=== PATIENT | male | born 1960 | race Hispanic/Latino ===

== ENCOUNTER 2017-11-09 12:23 | Observation (INO) | payer OTHER ==
[2017-11-06 12:58] VITALS: BP 135/86
[2017-11-06 12:59] LABS: BASOPHILS % (AUTO) 0.3 % (0.0-5.0); HEMATOCRIT 43.9 % (42-54); LYMPHOCYTES % (AUTO) 11.3 % (21.0-51.0); MEAN CORPUSCULAR HEMOGLOBIN 31.5 pg (27.0-33.0); MEAN CORPUSCULAR HGB CONC 34.4 g/dL (32.0-36.0); MEAN CORPUSCULAR VOLUME 91.6 fL (79-99); MONOCYTES % (AUTO) 1.6 % (3.0-13.0); NEUTROPHILS % (AUTO) 86.8 % (40.0-77.0); PLATELET COUNT (AUTO) 244 K/uL (130-400); RED BLOOD CELL COUNT(AUTO) 4.79 MIL/uL (4.50-6.20); WHITE BLOOD COUNT (AUTO) 11.5 K/uL (4.8-10.8)
[2017-11-06 13:02] LABS: APPEARANCE,URINE Clear (CLEAR); BILIRUBIN,URINE Negative (NEGATIVE); COLOR,URINE Yellow (YELLOW); GLUCOSE, URINE (UA) Negative (NEGATIVE); KETONES,URINE Negative (NEGATIVE); LEUKOCYTE ESTERASE ,URINE Negative (NEGATIVE); NITRATE,URINE Negative (NEGATIVE); OCCULT BLOOD,URINE Negative (NEGATIVE); PH,URINE 5.5 (5.0-8.0); PROTEIN,URINE Negative (NEGATIVE); UROBILINOGEN,URINE 0.2 mg/dL (0.2-1.0)
[2017-11-06 13:18] LABS: INR 1.01 (0.85-1.15); PARTIAL THROMBOPLASTIN TIME 29.3 SEC (26.3-35.5); POTASSIUM 3.8 mmol/L (3.5-5.1); PROTHROMBIN TIME 10.6 SEC (9.6-11.6)
[2017-11-09] VITALS (15 sets, daily range): BP systolic 118–151; BP diastolic 60–97
[~2017-11-09] VITALS: Ht 179.1 cm; Wt 103.8 kg
[~2017-11-09 12:23] MED LIST: AMLO5TAB2 PO; TRAM50TA4 PO; TYL4 PO
[2017-11-09] MEDS ORDERED: LACTATED RINGERS 1000ML 1,000 ML IV ONE (12:55)
[2017-11-09] MEDS: CEFAZOLIN SODIUM 1 GM VIAL IVP SCH ×2 (13:00→19:30)
[2017-11-09] MEDS ORDERED: NEOSTIGMINE 5MG/5ML SYR IV ONE ×2 (15:44→18:17)
[2017-11-09] MEDS ORDERED: DEXAMETHASONE SOD PHOSPHATE 10MG/ML 1ML VIAL ONE ×3 (15:44→18:17)
[2017-11-09] MEDS ORDERED: LIDOCAINE PF 2% 5ML ABBOJECT ONE ×4 (15:44→18:17)
[2017-11-09] MEDS ORDERED: ONDANSETRON HCL 4 MG/2 ML VIAL ONE ×2 (15:44→18:17)
[2017-11-09] MEDS ORDERED: MIDAZOLAM HCL 1 MG/ML 2ML VIAL ONE ×2 (15:44→18:18)
[2017-11-09] MEDS ORDERED: GLYCOPYRROLATE 0.2 MG/ML 5 ML VIAL ONE (15:44)
[2017-11-09] MEDS ORDERED: PROPOFOL 10 MG/ML 20ML VIAL IV ONE ×2 (15:45→18:18)
[2017-11-09] MEDS ORDERED: FENTANYL CITRATE PF 50 MCG/1 ML 2ML VIAL ONE ×2 (15:45→18:18)
[2017-11-09] MEDS ORDERED: ROCURONIUM BROMIDE 10MG/1ML 5ML VL ONE ×2 (15:50)
[2017-11-09] MEDS ORDERED: SUCCINYLCHOLINE CHLORIDE 20 MG/ML 10 ML VIAL ONE (15:50)
[2017-11-09] MEDS ORDERED: ROPIVACAINE HCL/PF 0.5% 100ML BOTTLE IV ONE (16:00)
[2017-11-09] MEDS ORDERED: KETOROLAC TROMETHAMINE 60 MG/2 ML VIAL IV ONE (16:00)
[2017-11-09] MEDS ORDERED: METOCLOPRAMIDE 10 MG/2 ML VIAL ONE (16:05)
[2017-11-09] MEDS ORDERED: ACETAMINOPHEN EXTRA STRENGTH 500 MG TABLET ONE (16:06)
[2017-11-09] MEDS ORDERED: CELECOXIB 200 MG CAP ONE (16:06)
[2017-11-09] MEDS ORDERED: OXYCODONE HCL 10 MG TAB.SR.12H PO ONE (16:07)
[2017-11-09] MEDS ORDERED: KETOROLAC TROMETHAMINE 15MG/ML ONE (16:13)
[2017-11-09] MEDS: Q-PUMP 1 EACH MISC SCH (16:15)
[2017-11-09] MEDS ORDERED: TRANEXAMIC ACID 1000MG/10ML IV ONE (18:07)
[2017-11-09] MEDS ORDERED: CEFAZOLIN SODIUM 1 GM VIAL ONE (18:07)
[2017-11-09] MEDS ORDERED: SUCCINYLCHOLINE 200MG/10ML SYR ONE (18:17)
[2017-11-09] MEDS ORDERED: LIDOCAINE HCL-MPF 1% 2ML VIAL IVP PRN (22:00)
[2017-11-09] MEDS ORDERED: POTASSIUM CHLORIDE 20MEQ/100ML 100 ML IV PRN (22:00)
[2017-11-09] MEDS: ACETAMINOPHEN EXTRA STRENGTH 500 MG TABLET PO SCH (22:00)
[2017-11-09] MEDS ORDERED: KETOROLAC TROMETHAMINE 15MG/ML IV PRN (22:00)
[2017-11-09] MEDS ORDERED: DiphenhydrAMINE HCL 50 MG/ML VIAL IVP PRN (22:00)
[2017-11-09] MEDS ORDERED: TRAMADOL HCL 50 MG TABLET PO PRN (22:00)
[2017-11-09] MEDS ORDERED: OXYCODONE HCL 5 MG TAB PO PRN (22:00)
[2017-11-09] MEDS ORDERED: FE FUMARATE/FA/MV, MIN COMB#15 1 TAB PO PRN (22:00)
[2017-11-09] MEDS ORDERED: ONDANSETRON HCL 4 MG/2 ML VIAL IVP PRN (22:00)
[2017-11-09] MEDS ORDERED: POTASSIUM CHLORIDE 10% ELIXIR 20 MEQ/15 ML UDCUP PO PRN (22:00)
[2017-11-09] MEDS ORDERED: MEPERIDINE-PF 25 MG/ML SYG ONE (22:21)
[2017-11-09] MEDS: SODIUM CHLORIDE 0.9% 1000ML 1,000 ML IV SCH (23:44)
[2017-11-10] VITALS (10 sets, daily range): BP systolic 106–140; BP diastolic 56–92
[2017-11-10] MEDS ORDERED: CEFAZOLIN SODIUM 1 GM VIAL ONE ×2 (02:24→10:55)
[2017-11-10] MEDS: OXYCODONE HCL 5 MG TAB PO PRN ×5 (02:30→20:20)
[2017-11-10] MEDS: CEFAZOLIN 2GM / 50 ML 50 ML IV SCH ×2 (02:31→11:00)
[2017-11-10 05:55] LABS: HEMATOCRIT 37.3 % (42-54); MEAN CORPUSCULAR HEMOGLOBIN 32.2 pg (27.0-33.0); MEAN CORPUSCULAR HGB CONC 34.7 g/dL (32.0-36.0); MEAN CORPUSCULAR VOLUME 92.8 fL (79-99); PLATELET COUNT (AUTO) 189 K/uL (130-400); RED BLOOD CELL COUNT(AUTO) 4.02 MIL/uL (4.50-6.20); RED CELL DISTRIBUTION WIDTH 13.8 % (11.0-15.5); WHITE BLOOD COUNT (AUTO) 18.7 K/uL (4.8-10.8)
[2017-11-10 06:05] LABS: CREATININE 0.9 mg/dL (0.5-1.5); POTASSIUM 3.3 mmol/L (3.5-5.1)
[2017-11-10] MEDS: ACETAMINOPHEN EXTRA STRENGTH 500 MG TABLET PO SCH ×2 (06:06→14:58)
[2017-11-10] MEDS: CALCIUM CARBONATE 500 MG TABLET PO PRN ×2 (06:20→09:01)
[2017-11-10] MEDS: POTASSIUM CHLORIDE 20 MEQ ERTAB PO PRN ×3 (06:21→11:01)
[2017-11-10] MEDS ORDERED: FENTANYL CITRATE PF 50 MCG/1 ML 5ML AMP IV ONE (07:46)
[2017-11-10] MEDS: SODIUM CHLORIDE 0.9% 1000ML 1,000 ML IV SCH ×2 (07:49→17:49)
[2017-11-10] MEDS ORDERED: ROCURONIUM BROMIDE 10MG/1ML 5ML VL ONE (08:16)
[2017-11-10] MEDS ORDERED: AMLODIPINE BESYLATE 5 MG TAB PO SCH (09:00)
[2017-11-10] MEDS ORDERED: TAMSULOSIN HCL 0.4 MG CAP.ER.24H PO SCH (09:00)
[2017-11-10] MEDS ORDERED: POLYETHYLENE GLYCOL 3350 17 GM POWD.PACK PO SCH (09:00)
[2017-11-10] MEDS: ASPIRIN 325 MG TABLET PO SCH ×2 (09:01→20:20)
[2017-11-10] MEDS: PREGABALIN 25 MG CAP PO SCH ×2 (09:01→20:20)
[2017-11-10] MEDS: FAMOTIDINE 20MG TAB 20 MG TAB PO SCH ×2 (09:01→20:20)
[2017-11-10] MEDS: CELECOXIB 200 MG CAP PO SCH ×2 (09:02→20:20)
[2017-11-10] MEDS: Q-PUMP 1 EACH MISC SCH (16:15)
[2017-11-10] MEDS ORDERED: HYDR-309 PO (19:13)
[2017-11-12] MEDS ORDERED: BISACODYL 10 MG SUPP.RECT RC PRN (22:00)
== END 2017-11-10 21:00 | disposition home or self-care (01) ==
LOC: DAH 12:23 → DAHIP 12:24 → EDSTATUS 14:30 → 4AH 11-10 00:16
PROVIDERS: ADMIT Orthopaedic Surgery; ATTEND Orthopaedic Surgery
DX: M75.102 Unspecified rotator cuff tear or rupture of left shoulder, not specified as traumatic (principal); Z79.01 Long term (current) use of anticoagulants
CPT/HCPCS: 23470; 36415 ×2; 73020; 80048 ×2; 81003; 85025; 85027; 85610; 85730; 88304; 88311; 96374 ×2; 97116 ×2; 97161; 97530 ×2; A4218 ×3; A4565 ×2; A4649 ×2; A4930 ×2; A6206; C1776; G0168; G0378 ×33; G8978; G8979; G8980; G8981; G8982; G8983; J0330 ×2; J0690 ×5; J1100 ×3; J1885 ×3; J2001 ×4; J2175; J2250; J2405 ×2; J2704 ×2; J2710 ×2; J2765; J2795; J3010; J3490 ×5; J7030; J7120

== ENCOUNTER 2025-03-23 10:09 | Observation (INO) | payer OTHER ==
[~2025-03-23] VITALS: Ht 182.9 cm; Wt 94.3 kg
[~2025-03-23 10:09] MED LIST changes: +AMLO-257 PO; -AMLO5TAB2 PO; +HYDR-4457 PO; -TRAM50TA4 PO; -TYL4 PO
[2025-03-23 10:26] LABS: APPEARANCE,URINE CLOUDY (CLEAR); GLUCOSE, URINE (UA) NEGATIVE (NEGATIVE); LEUKOCYTE ESTERASE ,URINE NEGATIVE Leu/uL (NEGATIVE); NITRATE,URINE NEGATIVE (NEGATIVE); OCCULT BLOOD,URINE LARGE (NEGATIVE)
--- NOTE | 2025-03-23 10:26 | ERN ---
ED Note History of Present Illness Stated Complaint: LEFT FLANK PAIN Chief Complaint: Flank Pain Time Seen by MD: 10:10 Time Seen by Midlevel: 10:14 Dictation: 64-year-old male with a history of hypertension and cholesterol coming in with complaints of left flank pain onset three days ago. Patient states he went to go see his PCP where they did blood in collected a urine sample and was told he had a urine infection any kidney infection. Patient was placed on levofloxacin. Patient was also given tamsulosin and [place]. Patient states he has has a bruise radiating pain. Denies having any fever, nausea or vomiting. States he started taking the antibiotic yesterday. Allergies: Coded Allergies: No Known Drug Allergies (Unverified Allergy, Unknown, 11/06/17) Home Meds Active Scripts Hydrocodone/Acetaminophen ([place] 5-325 Tablet) 1 Each Tablet, 1-2 EACH PO Q6H PRN for pain, #90 TAB Prov:SHOSHANA CALVIN MD 11/10/17 Reported Medications Amlodipine Besylate (Amlodipine Besylate) 5 Mg Tablet, 5 MG PO DAILY, TAB 11/06/17 Past Medical History Past Medical History: Hypertension Surgical History: Other Surgical History Other: LT KNEE, BACK SX, HERNIAS X4, LT SHOULER, RT SHOULDER Review of System Dictation Constitutional: Negative for fever,chills, and weight loss Eyes: Negative for injury, pain,redness, and discharge ENT: Negative for injury,pain or swelling Cardiovascular: Negative for chest pain, palpitations, and edema Respiratory: Negative for shortness of breath, cough, and wheezing, Abdomen/GI: Negative for abdominal pain, nausea, vomiting, diarrhea, and constipation left flank pain Back: Negative for injury and pain : Negative for injury, bleeding and discharge MS/Extremity: Negative for injury and deformity Skin: Negative for rash, and discoloration Neuro: Negative for headache, weakness, numbness, tingling, and seizure Psych: Negative for suicide ideation, homicidal ideation, and hallucinations Review of Systems: was completed Initial Vital Sign VS Vital Signs Date Time Temp Pulse Resp B/P (MAP) Pulse Ox O2 Delivery O2 Flow Rate FiO2 03/23/25 10:12 98.1 53 16 141/73 99 Room Air 0 03/23/25 11:00 21 Physical Exam Dictation General: awake, alert, NAD Head/Face: Normocephalic, atraumatic Eyes: PERRL, EOMI, vision at baseline ENT: oral cavity clear, TMs clear, no signs of infection Neck: Trachea midline, supple, no nuchal rigidity Cardiovascular: RRR, normal S1/S2, No MRGs, no JVD Respiratory: CTAB, no respiratory distress, No rales or wheezes Abdomen: Soft, non-tender, non-distended, normal bowel sounds, no guarding or rebound. Left CVA tenderness Skin: Warm, dry, normal turgor, no rash MS/Extremity: Pulses equal, no cyanosis, neurovascular intact, FROM Neuro: COAx4, GCS 15, strength 5/5, CN 2-12 intact, normal cerebellar exam, normal gait, Psych: Normal behavior, mood, and affect normal Results (Laboratory/Radiology) Laboratory/Radiology Laboratory Tests Test 03/23/25 10:15 03/23/25 10:25 Urine Color LIGHT-ORANGE (YELLOW) Urine Appearance CLOUDY (CLEAR) H Urine pH 5.5 (5.0-8.0) Urine Specific [place] 1.031 (1.001-1.031) Urine Protein 30 mg/dL (NEGATIVE) H Urine Glucose (UA) NEGATIVE mg/dL (NEGATIVE) Urine Ketones NEGATIVE mg/dL (NEGATIVE) Urine Occult Blood LARGE (NEGATIVE) H Urine Nitrate NEGATIVE (NEGATIVE) Urine Bilirubin NEGATIVE mg/dL (NEGATIVE) Urine Urobilinogen 0.2 mg/dL (0.2-1.0) Urine Leukocyte Esterase NEGATIVE J[place]aran/uL Urine RBC TNTC /HPF (0-1) H Urine WBC 11-25 /HPF (0-1) H Urine Bacteria None /HPF (None Seen) Urine Yeast RARE /HPF (None Seen) White Blood Count 12.3 K/uL (4.8-10.8) H Red Blood Count 4.54 MIL/uL (4.50-6.20) Hemoglobin 14.8 g/dL (14.0-18.0) Hematocrit 45.3 % (42-54) Mean Corpuscular Volume 99.8 fL (79-99) H Mean Corpuscular Hemoglobin 32.6 pg (27.0-33.0) Mean Corpuscular Hemoglobin Concent 32.7 g/dL (32.0-36.0) Red Cell Distribution Width 13.5 % (11.0-15.5) Platelet Count 234 K/uL (130-400) Mean Platelet Volume 10.9 fL (7.5-10.5) H Immature Granulocyte % (Auto) 0.3 % (0-1) Neutrophils (%) (Auto) 66.5 % (40.0-77.0) Lymphocytes (%) (Auto) 24.1 % (21.0-51.0) Monocytes (%) (Auto) 7.1 % (3.0-13.0) Eosinophils (%) (Auto) 1.5 % (0.0-8.0) Basophils (%) (Auto) 0.5 % (0.0-5.0) Neutrophils # (Auto) 8.2 K/uL (1.8-7.7) H Lymphocytes # (Auto) 3.0 K/uL (1.0-4.8) Monocytes # (Auto) 0.9 K/uL (0.1-1.0) Eosinophils # (Auto) 0.19 K/uL (0.00-0.70) Basophils # (Auto) 0.06 K/uL (0.00-0.20) Absolute Immature Granulocyte (auto 0.04 K/uL (0-1) Nucleated Red Blood Cells 0.0 % (0.0-0.19) Sodium Level 139 mmol/L (136-145) Potassium Level 4.3 mmol/L (3.5-5.1) Chloride Level 103 mmol/L (101-111) Carbon Dioxide Level 26 mmol/L (21-32) Blood Urea Nitrogen 37 mg/dL (7-18) H Creatinine 1.7 mg/dL (0.5-1.3) H Glomerular Filtration Rate Calc 45 mL/min (>90) Random Glucose 100 mg/dL (70-105) Total Calcium 8.6 mg/dL (8.5-10.1) Labs Reviewed?: Yes CT Scan Comment: [place] [id number] [id number] IMAGING REPORT Signed PATIENT: DONNELL ADAME MR#: [id number] : 1960 SEX: M AGE: 64 LOCATION: [facility] ORDER 1014 STATUS: REG ER REPORT#: [id number] SERVICE 1013 REASON: l flank pain ORDERING PHYSICIAN: ANANT DELGADO CNP PROCEDURE: ABD PEL WO - CT ABDOMEN/PELVIS W/O CONTRAST EXAM: CT Abdomen and Pelvis Without IV Contrast CLINICAL HISTORY: Left flank pain TECHNIQUE: Axial computed tomography images of the abdomen and pelvis without intravenous contrast. CONTRAST: No IV contrast. COMPARISON: None provided. FINDINGS: LUNG BASES: Chronic dependent interstitial changes in the bilateral posterobasal segments. No pleural effusion. LIVER: Hepatomegaly measuring 17 cm with diffuse hepatic steatosis. GALLBLADDER AND BILE DUCTS: Gallbladder normal. No radiopaque gallstones. No biliary ductal dilatation. PANCREAS: Normal appearance. SPLEEN: Unremarkable. ADRENAL GLANDS: Unremarkable. KIDNEYS, URETERS, AND BLADDER: Right kidney: Two 2-mm calculi in the upper pole. Left kidney: At least three calculi measuring up to 4 mm. Left proximal ureter: 7-mm calculus (CT density 900 HU) located approximately 6 cm distal to the pelviureteric junction. Right vesicoureteric junction calculus: 5-mm calculus (density 500 HU). No hydronephrosis or hydroureter. Bladder unremarkable. Bilateral perinephric fat stranding noted. STOMACH AND BOWEL: No bowel obstruction, enteritis, or colitis. APPENDIX: Normal; 0.5 cm in diameter. PERITONEUM: No free fluid. No free air. LYMPH NODES: No lymphadenopathy. REPRODUCTIVE: Prostatomegaly measuring approximately 39 cc. VASCULATURE: Aorta and major branches demonstrate atherosclerotic calcification. No aneurysm. BONES: Moderate degenerative thoracolumbar spondylosis with multilevel disc space narrowing and facet arthrosis. Mild lumbar dextroscoliosis with Guerrero angle of 10???. No acute osseous lesion. OTHER: Fat-containing bilateral indirect inguinal hernias. Small umbilical hernia with 1-cm fascial defect containing fat. Dose length product: 996 mGy???cm. IMPRESSION: * Left proximal ureteric calculus measuring 7 mm (900 HU) located 6 cm distal to the pelviureteric junction; right vesicoureteric junction 5-mm calculus. No hydronephrosis. * Bilateral nephrolithiasis: Two right upper-pole 2-mm calculi and at least three left renal calculi up to 4 mm. * Hepatomegaly with diffuse hepatic steatosis. * Bilateral perinephric fat stranding, nonspecific, without obstructive uropathy. * Moderate degenerative thoracolumbar spondylosis with mild lumbar dextroscoliosis (Guerrero 10???). * Fat-containing bilateral indirect inguinal hernias and a small umbilical hernia. /[place] DICTATED BY: MAURICE REVELES MD DATE: 03/23/251331 ELECTRONICALLY SIGNED BY: MAURICE REVELES MD DATE: 03/23/251331 ED Course ED Course Orders Procedure Category Date Status Time Cbc With Differential LAB 03/23/25 Complete 10: Basic Metabolic Panel LAB 03/23/25 Complete 10: Urinalysis Profile LAB 03/23/25 Complete 10: Ct Abdomen/Pelvis W/O CT 03/23/25 Resulted Contrast 10:13 0.9%Nacl 1000ml (Ns PHA 03/23/25 In Process 1000ml) 10:30 Ketorolac PHA 03/23/25 Complete Tromethamine 15mg/Ml 10:30 Culture Urine RAMAKRISHNA 03/23/25 In Process 10:34 Ceftriaxone 1g Vial PHA 03/23/25 Complete (Rocephine 1g Inj) 12:39 Current Medications Medications (Trade) Dose Ordered Sig/Sagrario Route PRN Reason Start Time Stop Time Status Last Admin Dose Admin Ceftriaxone Sodium (ROCEphine 1G INJ) 1 gm ONCE STAT IVPB 03/23/25 12:39 03/23/25 12:41 DC Ketorolac Tromethamine (toRADol) 15 mg ONCE ONCE IV 03/23/25 10:30 03/23/25 10:31 DC 03/23/25 11:12 Sodium Chloride 1,000 ml @ 1,000 mls/hr Q1H IV 03/23/25 10:30 04/22/25 10:29 03/23/25 11:12 Vital Signs Date Time Temp Pulse Resp B/P (MAP) Pulse Ox O2 Delivery O2 Flow Rate FiO2 03/23/25 11:00 97.2 54 18 146/83 100 Room Air* 0 21 03/23/25 10:12 98.1 53 16 141/73 99 Room Air 0 Medical Decision Making MDM MDM: 64-year-old male with a history of hypertension and cholesterol coming in with complaints of left flank pain onset three days ago. Patient states he went to go see his PCP where they did blood in collected a urine sample and was told he had a urine infection any kidney infection. Patient was placed on levofloxacin. Patient was also given tamsulosin and [place]. Patient states he h as has a bruise radiating pain. Denies having any fever, nausea or vomiting. States he started taking the antibiotic yesterday. CBC shows leukocytosis of 12 , no anemia, no thrombocytopenia. Chemistry shows no electrolyte abnormality. KILLIAN with a creatinine of 1.7. UA shows evidence of hematuria and some WBCs in urine. He has can of the abdomen and pelvis shows left kidney three calculi measuring up to 4 mm, left proximal ureter measuring sudden mm. No hydronephrosis or hydroureter. Bilateral perinephric fat stranding. With the patient's labs and physical assessment with a positive CVA tenderness patient will be admitted for kidney stones, KILLIAN, and pyelonephritis. Differential diagnosis: Pyelonephritis, urinary tract infection, kidney stones Rationale: Tests considered and ordered secondary to shared decision making include: labs, ECG and radiology Previous outside records reviewed: Old ER visits. Risk of complication and/or morbidity or mortality of patient management: None Medications-Per medication reconciliation Need for hospitalization: Patient does meet criteria for hospitalization. Need for emergency major/minor surgery: No There are no social concerns with this patient. Prescription drug management Prescriptions will include symptomatic care Patient's prior external medical records from other ER visits were reviewed by me as indicated. Prior testing and results from previous visits were reviewed. Prior tests were taken into account with medical decision making and resource utilization, independent historian/historians were used to obtain complete medical history. I independently interpreted the test that were performed, results were reviewed by me and considered findings on radiology if ordered. Medical management and examination interpretation discussions were had by me with other qualified healthcare professionals as indicated for the patient's care. DX & DISP Disposition: Inpatient Decision to Admit Date: Mar 23, 2025 Decision to Admit Time: 12:55 Departure Impression: Primary Impression: Nephrolithiasis Additional Impressions: Pyelonephritis, KILLIAN (acute kidney injury), Calculus of proximal left ureter Condition: Stable Referrals: SHOSHANA CALVIN MD (PCP) I have reviewed the case, and I agree with, Diagnosis and Plan ANANT DELGADO CNP Mar 23, 2025 10:26
[2025-03-23 10:28] LABS: IMMATURE GRANULOCYTE ABSOLUTE 0.04 K/uL (0-1); NUCLEATED RED BLOOD CELLS 0.0 % (0.0-0.19); PLATELET COUNT (AUTO) 234 K/uL (130-400); RED BLOOD CELL COUNT(AUTO) 4.54 MIL/uL (4.50-6.20); RED CELL DISTRIBUTION WIDTH 13.5 % (11.0-15.5); WHITE BLOOD COUNT (AUTO) 12.3 K/uL (4.8-10.8)
[2025-03-23 10:29] LABS: ADD UA MICROSCOPIC YES
[2025-03-23 10:31] LABS: YEAST,URINE BUDDING RARE /HPF (None Seen)
[2025-03-23 10:38] LABS: CREATININE 1.7 mg/dL (0.5-1.3); GLOMERULAR FILTR. RATE CALC 45.0 mL/min (>90); GLUCOSE,RANDOM 100.0 mg/dL (70-105); SODIUM SERUM 139.0 mmol/L (136-145); UREA NITROGEN, BLOOD 37.0 mg/dL (7-18)
[2025-03-23] MEDS: 0.9%NACL 1000ML 1,000 ML IV SCH ×2 (11:12→14:13)
--- NOTE | 2025-03-23 12:34 | HMCIMG ---
EXAM: CT Abdomen and Pelvis Without IV Contrast CLINICAL HISTORY: Left flank pain TECHNIQUE: Axial computed tomography images of the abdomen and pelvis without intravenous contrast. CONTRAST: No IV contrast. COMPARISON: None provided. FINDINGS: LUNG BASES: Chronic dependent interstitial changes in the bilateral posterobasal segments. No pleural effusion. LIVER: Hepatomegaly measuring 17 cm with diffuse hepatic steatosis. GALLBLADDER AND BILE DUCTS: Gallbladder normal. No radiopaque gallstones. No biliary ductal dilatation. PANCREAS: Normal appearance. SPLEEN: Unremarkable. ADRENAL GLANDS: Unremarkable. KIDNEYS, URETERS, AND BLADDER: Right kidney: Two 2-mm calculi in the upper pole. Left kidney: At least three calculi measuring up to 4 mm. Left proximal ureter: 7-mm calculus (CT density 900 HU) located approximately 6 cm distal to the pelviureteric junction. Right vesicoureteric junction calculus: 5-mm calculus (density 500 HU). No hydronephrosis or hydroureter. Bladder unremarkable. Bilateral perinephric fat stranding noted. STOMACH AND BOWEL: No bowel obstruction, enteritis, or colitis. APPENDIX: Normal; 0.5 cm in diameter. PERITONEUM: No free fluid. No free air. LYMPH NODES: No lymphadenopathy. REPRODUCTIVE: Prostatomegaly measuring approximately 39 cc. VASCULATURE: Aorta and major branches demonstrate atherosclerotic calcification. No aneurysm. BONES: Moderate degenerative thoracolumbar spondylosis with multilevel disc space narrowing and facet arthrosis. Mild lumbar dextroscoliosis with Guerrero angle of 10???. No acute osseous lesion. OTHER: Fat-containing bilateral indirect inguinal hernias. Small umbilical hernia with 1-cm fascial defect containing fat. Dose length product: 996 mGy???cm. IMPRESSION: * Left proximal ureteric calculus measuring 7 mm (900 HU) located 6 cm distal to the pelviureteric junction; right vesicoureteric junction 5-mm calculus. No hydronephrosis. * Bilateral nephrolithiasis: Two right upper-pole 2-mm calculi and at least three left renal calculi up to 4 mm. * Hepatomegaly with diffuse hepatic steatosis. * Bilateral perinephric fat stranding, nonspecific, without obstructive uropathy. * Moderate degenerative thoracolumbar spondylosis with mild lumbar dextroscoliosis (Guerrero 10???). * Fat-containing bilateral indirect inguinal hernias and a small umbilical hernia. /[place]
--- NOTE | 2025-03-23 13:28 | HP ---
[facility] HISTORY AND PHYSICAL Date of Service: Mar 23, 2025 Time of Service: 13:27 HISTORY OF PRESENT ILLNESS: Date of service: 03/23/2025 This is a 64-year-old male with past medical history of hypertension who presented to the hospital secondary to pain in the left flank area. Patient states she has been having ongoing pain for the past three days. He went to see his primary care provider who obtained a urine sample. Patient plate was placed on Levaquin due to concern for UTI. He was also given Flomax and [place] as outpatient. The patient states his pain remained persistent and he had also noted hematuria with urination. He denied any burning sensation with urination. He had associated nausea without any episodes of vomiting. He has had episodes of constipation. Denied any melena, hematochezia, hematemesis. Denied any fever, chills, shortness of breath, chest. Secondary to non improving symptoms patient thereafter came to the hospital evaluation. Labs were notable for white count of 12.3, hemoglobin was 14.8, platelet count was 234k, sodium was 139 potassium was 4.3 creatinine was elevated at 1.7, BUN was 37, glucose was [address] abdomen pelvis which showed left proximal ureteric calculus measuring 7 mm located 6 cm distal to the pelvic ureteric junction, right vesicoureteric junction 5 mm calculus. There was no hydronephrosis. There is bilateral nephrolithiasis. To right upper pole2 mm calculi in at least three left renal calculi measuring 4 mm. There was hepatomegaly with hepatic steatosis. There was bilateral fat containing hernia. There was bilateral perinephric stranding noted. REVIEW OF SYSTEMS CONSTITUTIONAL: Denies fevers, chills, or night sweats. No unintentional weight loss reported. NEUROLOGICAL: Denies headache, amaurosis fugax, motor weakness, sensory deficit, vertigo/spinning sensation, gait abnormalities, or tremors. ENT: No hearing loss, otalgia, otorrhea, rhinitis, rhinorrhea, hoarseness, or sore throat. CARDIOVASCULAR: Denies any exertional angina, dyspnea on exertion, orthopnea, paroxysmal nocturnal dyspnea, palpitations, life-threatening arrhythmias, claudication. PULMONARY: Denies any shortness of breath, cough, phlegm/sputum, hemoptysis, pleuritic chest pain. SLEEP: Denies morning headaches, daytime somnolence or napping. Denies difficulty falling asleep, staying asleep, waking from sleep. Denies knowledge of snoring. GASTROINTESTINAL: Denies any type of dysphagia to either liquids or solids. Denies vomiting, pyrosis, early satiety, abdominal pain, diarrhea, constipation, or changes in stool consistency or caliber. Denies coffee-ground emesis, hematemesis, hematochezia, or melanotic stools. Positive for nausea. Positive for left flank pain GENITOURINARY: Denies frequency, urgency, nocturia,or incontinence (Storage/Irritative symptoms.) Low urinary stream, straining to void, urinary intermittency or hesitancy, splitting of the voiding stream, terminal dribbling. Positive for hematuria ENDOCRINOLOGIC: Denies polyuria, polydipsia, polyphagia or heat/cold intolerances. HEMATOLOGIC: Denies thrombophilia/previous clots, or coagulopathy/bleeding disorders. ONCOLOGIC: Denies personal history of malignancy. DERMATOLOGIC: Denies rashes or pruritus. PSYCHIATRIC: Denies any suicidal or homicidal ideation. Denies hallucinations. PAST MEDICAL HISTORY: Hypertension PAST SURGICAL HISTORY: History of hernia repair PAST SOCIAL HISTORY: Smokes 3-4 cigarettes per day for at least 10 years. Denied any alcohol use. Denied any drug use FAMILY HISTORY: Denied any pertinent family history Coded Allergies: No Known Drug Allergies (Unverified Allergy, Unknown, 11/06/17) PHYSICAL EXAM GENERAL APPEARANCE: The patient is awake, alert, and oriented, in no acute cardiopulmonary distress. NEUROLOGICAL: Cranial nerves II-XII grossly intact. Motor is 5/5 in bilateral upper and lower extremities proximal to distal. No sensory deficits. HEENT: Face is symmetric. Pupils are equal and reactive. Extraocular movements are intact. NECK: Supple. No JVD. No thyromegaly. No submental, submandibular, pre- /postauricular, occipital or supraclavicular lymphadenopathy. CHEST: Normal chest expansion. No Telemetry. LUNGS: Absence of any rales, rhonchi or any wheezing. CARDIOVASCULAR: Regular. S1 and S2 normal. No appreciable rubs, murmurs or gallops. ABDOMEN: Soft, nontender, and nondistended. There is no rebound, voluntary guarding, or rigidity. : Deferred. No [place]al. Mild CVA tenderness noted on the left side EXTREMITIES: Non-edematous and not cyanotic. No clubbing. Good capillary refill. SKIN: No skin breakdown. Vital Sign (Last 24 Hours) 03/23/25 11:00 Temp 97.2 Pulse 54 Resp 18 B/P (MAP) 146/83 Pulse Ox 100 O2 Delivery Room Air* O2 Flow Rate 0 FiO2 21 LABS: Laboratory: Test 03/23/25 10:25 03/23/25 10:15 Range/Units White Blood Count 12.3 H 4.8-10.8 K/uL Red Blood Count 4.54 4.50-6.20 MIL/uL Hemoglobin 14.8 14.0-18.0 g/dL Hematocrit 45.3 42-54 % Mean Corpuscular Volume 99.8 H 79-99 fL Mean Corpuscular Hemoglobin 32.6 27.0-33.0 pg Mean Corpuscular Hemoglobin Concent 32.7 32.0-36.0 g/dL Red Cell Distribution Width 13.5 11.0-15.5 % Platelet Count 234 130-400 K/uL Mean Platelet Volume 10.9 H 7.5-10.5 fL Immature Granulocyte % (Auto) 0.3 0-1 % Neutrophils (%) (Auto) 66.5 40.0-77.0 % Lymphocytes (%) (Auto) 24.1 21.0-51.0 % Monocytes (%) (Auto) 7.1 3.0-13.0 % Eosinophils (%) (Auto) 1.5 0.0-8.0 % Basophils (%) (Auto) 0.5 0.0-5.0 % Neutrophils # (Auto) 8.2 H 1.8-7.7 K/uL Lymphocytes # (Auto) 3.0 1.0-4.8 K/uL Monocytes # (Auto) 0.9 0.1-1.0 K/uL Eosinophils # (Auto) 0.19 0.00-0.70 K/uL Basophils # (Auto) 0.06 0.00-0.20 K/uL Absolute Immature Granulocyte (auto 0.04 0-1 K/uL Nucleated Red Blood Cells 0.0 0.0-0.19 % Sodium Level 139 136-145 mmol/L Potassium Level 4.3 3.5-5.1 mmol/L Chloride Level 103 101-111 mmol/L Carbon Dioxide Level 26 21-32 mmol/L Blood Urea Nitrogen 37 H 7-18 mg/dL Creatinine 1.7 H 0.5-1.3 mg/dL Glomerular Filtration Rate Calc 45 >90 mL/min Random Glucose 100 70-105 mg/dL Total Calcium 8.6 8.5-10.1 mg/dL Urine Color LIGHT-ORANGE YELLOW Urine Appearance CLOUDY H CLEAR Urine pH 5.5 5.0-8.0 Urine Specific [place] 1.031 1.001-1.031 Urine Protein 30 H NEGATIVE mg/dL Urine Glucose (UA) NEGATIVE NEGATIVE mg/dL Urine Ketones NEGATIVE NEGATIVE mg/dL Urine Occult Blood LARGE H NEGATIVE Urine Nitrate NEGATIVE NEGATIVE Urine Bilirubin NEGATIVE NEGATIVE mg/dL Urine Urobilinogen 0.2 0.2-1.0 mg/dL Urine Leukocyte Esterase NEGATIVE NEGATIVE Jaskaran/uL Urine RBC TNTC H 0-1 /HPF Urine WBC 11-25 H 0-1 /HPF Urine Bacteria None None Seen /HPF Urine Yeast RARE None Seen /HPF Current Medications Medications (Trade) Dose Ordered Sig/Sagrario Route PRN Reason Start Time Stop Time Status Last Admin Dose Admin Ceftriaxone Sodium (ROCEphine 1G INJ) 1 gm ONCE STAT IVPB 03/23/25 12:39 03/23/25 12:41 DC Ceftriaxone Sodium (Rocephin 2gm Inj) 2 gm Q24H IVPB 03/24/25 09:00 04/03/25 08:59 UNV Famotidine (Pepcid 20mg Vial) 20 mg BID IV 03/23/25 21:00 04/22/25 20:59 UNV Ketorolac Tromethamine (toRADol) 15 mg Q6H PRN IV MODERATE PAIN (4-6) 03/23/25 13:30 03/28/25 13:29 UNV Morphine Sulfate (morPHINE 2MG SYG) 2 mg Q6H PRN IVP SEVERE PAIN (7-10) 03/23/25 13:30 03/30/25 13:29 UNV Sodium Chloride 1,000 ml @ 1,000 mls/hr Q1H IV 03/23/25 10:30 04/22/25 10:29 03/23/25 11:12 1,000 MLS/HR DIAGNOSTICS / RADIOLOGY: [ ] ASSESSMENT: Symptomatic nephrolithiasis with a 7 mm stone 6 cm distal to the pelvic ureteric junction and multiple bilateral renal calculi POA Hematuria secondary to nephrolithiasis Suspected UTI POA Dehydration Acute kidney injury Hypertension PLAN: -patient to be admitted to medical-surgical unit with telemetry -in reference to symptomatic nephrolithiasis. Patient will be started on IV fluids. Start patient on Rocephin. The patient we will continue on Flomax. We will obtain consultation with Urology. Patient will be on Toradol and morphine for pain control -reference to KILLIAN. Closely monitor creatinine. Renally dose all medications. Repeat BMP for tomorrow. Check urine sodium, urine creatinine random -obtain home medications which will be reconciled once available -check TSH, hemoglobin A1c -further orders per hospitalization course Advanced Care Planning Which of the following were discussed: Hospice care: Yes __ No _x_ Therapeutic options: Yes __ No __ Advance directives: Yes __ No __ Other discussions: Discussed with who?: patient (Patient, family or surrogates) Voluntary nature of this service was explained to the patient? Yes _x_ No __ Amount of time spent: 25 minutes PERLITA MADDOX MD Mar 23, 2025 13:28
[2025-03-23] MEDS ORDERED: PoTASSium chloRIDE 20MEQ ER 20 MEQ ERTAB PO PRN (13:30)
[2025-03-23] MEDS ORDERED: MAGNESIUM 2GM PREMIX 50ML 50 ML IV PRN (13:30)
[2025-03-23] MEDS ORDERED: PoTASSium chl 10% ELIXIR 20MEQ 20 MEQ/15 ML UDCUP PO PRN (13:30)
[2025-03-23 14:05] LABS: ASPARTATE AMINOTRANSFERASE 19.0 U/L (10-37); TOTAL PROTEIN, SERUM 7.7 g/dL (6.0-8.3)
[2025-03-23 15:31] LABS: CREATININE,URINE RANDOM 145.26 mg/dL (30-135)
--- NOTE | 2025-03-23 16:14 | NUR ---
DCP:HOME Pt currently lives at home with his Renetta Wise [phone]. Pt denies having any DME, home health, or provider services. Pt is able to complete ALDs independently. PCP is Alistair Snyder and uses [facility] for any RX needs. At DC pt will want to go home and family can assist with transportation.
[2025-03-23] MEDS ORDERED: METO-408 PO (18:30)
[2025-03-23] MEDS ORDERED: ATOR40TA69 PO (18:30)
[2025-03-23] MEDS ORDERED: TADA20TA PO (18:30)
[2025-03-23 19:15] VITALS: TEMP 97.2
--- NOTE | 2025-03-23 19:46 | NUR ---
PT CARE ASSUMED AT THIS TIME
[2025-03-23] MEDS: FAMOTIDINE 20MG VIAL IV SCH (21:46)
--- NOTE | 2025-03-23 21:50 | CONS ---
CONSULTATION NOTE Date of Service: Mar 23, 2025 Reason for Consultation: 7 mm left mid ureteral calculus Requesting Physician: Jose Hugo MD HISTORY OF PRESENT ILLNESS: 64-year-old male with past medical history of hypertension who presented to the hospital secondary to pain in the left flank area. Described as a stabbing ache, severity at the time of presentation, a nine on a scale of 1-10. Patient states she has been having ongoing pain for the past three days. He went to see his primary care provider who obtained a urine sample. Patient plate was placed on Levaquin due to concern for UTI. He was also given Flomax and [place] as outpatient. The patient states his pain remained persistent and he had also noted hematuria with urination. He denied any burning sensation with urination. He had associated nausea without any episodes of vomiting. He has had episodes of constipation. Labs were notable for white count of 12.3, hemoglobin was 14.8, platelet count was 234k, sodium was 139 potassium was 4.3 creatinine was elevated at 1.7, BUN was 37, glucose was 100. CT abdomen pelvis which showed left proximal ureteric calculus measuring 7 mm located 6 cm distal to the pelvic ureteric junction, right vesicoureteric junction 5 mm calculus. There was no hydronephrosis. There is bilateral nephrolithiasis. To right upper pole2 mm calculi in at least three left renal calculi measuring 4 mm. There was hepatomegaly with hepatic steatosis. There was bilateral fat containing hernia. There was bilateral perinephric stranding noted. He has been admitted to the floor for supportive care with a urological consult REVIEW OF SYSTEMS CONSTITUTIONAL: Denies fever, chills, or fatigue. HEAD/FACE: No signs of trauma. EENT: Denies eye pain, blurred vision, double vision, or light sensitivity. RESPIRATORY: Denies shortness of breath, cough, wheezing CARDIOVASCULAR: Denies chest pain, palpitation, syncope GASTROINTESTINAL/ABDOMINAL: Denies abdominal pain, constipation, diarrhea, nausea or vomiting GENITOURINARY: Denies dysuria or hematuria. MUSCULOSKELETAL: Denies joint pain, tenderness, or trauma. INTEGUMENTARY: Denies rash or itchiness NEUROLOGICAL/PSYCH: Denies anxiety, depression, heat or cold intolerance. PAST MEDICAL HISTORY: Hypertension, nephrolithiasis PAST SURGICAL HISTORY: Previous hernia repair PAST SOCIAL HISTORY: Denies ethanol, smoking and recreational drugs FAMILY HISTORY: Noncontributory to presenting complaint Coded Allergies: No Known Drug Allergies (Unverified Allergy, Unknown, 11/06/17) PHYSICAL EXAM EYES: Anicteric. Pupils equal and reactive. HENT: No oral thrush seen, moist Oral mucosa NECK: Supple, no JVD or thyromegaly. LUNGS: Good air entry. No rales, no rhonchi. CARDIOVASCULAR: S1, S2 regular. No murmur heard. ABDOMEN: Soft, non tender, bowel sounds present, no organomegaly CENTRAL NERVOUS SYSTEM: Awake, alert, oriented x 3. No focal deficits. SKIN: No rashes, no swelling. LYMPHATICS: No peripheral lymphadenopathy MUSCULOSKELETAL: No joint swelling, erythema or tenderness. EXTREMITIES: No cyanosis or clubbing BACK: No deformity, no pressure ulcer. GENITOURINARY: Normal genitalia Vital Sign (Last 24 Hours) 03/23/25 19:46 Temp 97.5 Pulse 56 Resp 17 B/P (MAP) 137/86 Pulse Ox 100 O2 Delivery Room Air* O2 Flow Rate 0 FiO2 21 LABS: Laboratory: Test 03/23/25 10:25 03/23/25 10:15 Range/Units White Blood Count 12.3 H 4.8-10.8 K/uL Red Blood Count 4.54 4.50-6.20 MIL/uL Hemoglobin 14.8 14.0-18.0 g/dL Hematocrit 45.3 42-54 % Mean Corpuscular Volume 99.8 H 79-99 fL Mean Corpuscular Hemoglobin 32.6 27.0-33.0 pg Mean Corpuscular Hemoglobin Concent 32.7 32.0-36.0 g/dL Red Cell Distribution Width 13.5 11.0-15.5 % Platelet Count 234 130-400 K/uL Mean Platelet Volume 10.9 H 7.5-10.5 fL Immature Granulocyte % (Auto) 0.3 0-1 % Neutrophils (%) (Auto) 66.5 40.0-77.0 % Lymphocytes (%) (Auto) 24.1 21.0-51.0 % Monocytes (%) (Auto) 7.1 3.0-13.0 % Eosinophils (%) (Auto) 1.5 0.0-8.0 % Basophils (%) (Auto) 0.5 0.0-5.0 % Neutrophils # (Auto) 8.2 H 1.8-7.7 K/uL Lymphocytes # (Auto) 3.0 1.0-4.8 K/uL Monocytes # (Auto) 0.9 0.1-1.0 K/uL Eosinophils # (Auto) 0.19 0.00-0.70 K/uL Basophils # (Auto) 0.06 0.00-0.20 K/uL Absolute Immature Granulocyte (auto 0.04 0-1 K/uL Nucleated Red Blood Cells 0.0 0.0-0.19 % Sodium Level 139 136-145 mmol/L Potassium Level 4.3 3.5-5.1 mmol/L Chloride Level 103 101-111 mmol/L Carbon Dioxide Level 26 21-32 mmol/L Blood Urea Nitrogen 37 H 7-18 mg/dL Creatinine 1.7 H 0.5-1.3 mg/dL Glomerular Filtration Rate Calc 45 >90 mL/min Random Glucose 100 70-105 mg/dL Hemoglobin A1c 5.8 4.0-6.0 % Estimated Average Glucose (eAG) 120 70-126 mg/dL Total Calcium 8.6 8.5-10.1 mg/dL Total Bilirubin 0.3 0.2-1.0 mg/dL Direct Bilirubin 0.1 0.0-0.3 mg/dL Aspartate Amino Transf (AST/SGOT) 19 10-37 U/L Alanine Aminotransferase (ALT/SGPT) 34 12-78 U/L Alkaline Phosphatase 87 50-136 U/L Total Protein 7.7 6.0-8.3 g/dL Albumin 4.3 3.5-5.0 g/dL Procalcitonin < 0.05 L 0.05-0.5 ng/mL Thyroid Stimulating Hormone (TSH) 2.64 0.36-3.74 uIU/mL Urine Color LIGHT-ORANGE YELLOW Urine Appearance CLOUDY H CLEAR Urine pH 5.5 5.0-8.0 Urine Specific [place] 1.031 1.001-1.031 Urine Protein 30 H NEGATIVE mg/dL Urine Glucose (UA) NEGATIVE NEGATIVE mg/dL Urine Ketones NEGATIVE NEGATIVE mg/dL Urine Occult Blood LARGE H NEGATIVE Urine Nitrate NEGATIVE NEGATIVE Urine Bilirubin NEGATIVE NEGATIVE mg/dL Urine Urobilinogen 0.2 0.2-1.0 mg/dL Urine Leukocyte Esterase NEGATIVE NEGATIVE Jaskaran/uL Urine RBC TNTC H 0-1 /HPF Urine WBC 11-25 H 0-1 /HPF Urine Bacteria None None Seen /HPF Urine Yeast RARE None Seen /HPF Urine Random Creatinine 145.26 H 30-135 mg/dL Urine Random Sodium 172 40-220 mmol/l DIAGNOSTICS / RADIOLOGY: CT abdomen and pelvis, stone protocol does reveal multiple renal calculi. There is a prominent7 mm stone in the left mid ureter with hydroureteronephrosis. ASSESSMENT: 64-year-old man presents to the emergency department with acute renal colic symptoms secondary to a 7 mm stone in the left mid ureter PLAN: 1. Patient has been admitted for supportive care. 2. He is doing much better. He does not really want to be in the hospital. Since patient has been stabilized, we completely agree with him being discharged so that we can schedule him for elective stone treatment some time early next week. 3. If patient is leaving to be treated next week, I urged the primary team to contact me so I can have a concrete plan for this patient. 60 minutes spent to complete a consult, more than half of the time spent in counseling and coordination of care and addressing questions posed by patient, some time was spent discussing with members of his care team, the rest of the time was spent reviewing medical records especially laboratory and imaging studies from this hospitalization. SUSHIL SORENSON MD Mar 23, 2025 21:50
--- NOTE | 2025-03-23 22:59 | NUR ---
REPORT GIVEN TO PRASANNA BRADEN AT THIS TIME
[2025-03-23 23:18] VITALS: BP 131/89; PULSE 56; RESP 19; TEMP 97.3; O2SAT 97
[2025-03-24] MEDS: HYDROcodone/APAP 5/325 1 TAB TABLET PO PRN (01:38)
[2025-03-24 04:01] VITALS: BP 144/95; PULSE 65; RESP 18; TEMP 97.5
[2025-03-24 07:12] LABS: IMMATURE GRANULOCYTE ABSOLUTE 0.04 K/uL (0-1); NUCLEATED RED BLOOD CELLS 0.0 % (0.0-0.19); PLATELET COUNT (AUTO) 215 K/uL (130-400); RED BLOOD CELL COUNT(AUTO) 4.15 MIL/uL (4.50-6.20); RED CELL DISTRIBUTION WIDTH 13.2 % (11.0-15.5); WHITE BLOOD COUNT (AUTO) 10.8 K/uL (4.8-10.8)
[2025-03-24 07:36] LABS: CREATININE 1.1 mg/dL (0.5-1.3); GLOMERULAR FILTR. RATE CALC 75.0 mL/min (>90); GLUCOSE,RANDOM 91.0 mg/dL (70-105); SODIUM SERUM 138.0 mmol/L (136-145); UREA NITROGEN, BLOOD 22.0 mg/dL (7-18)
--- NOTE | 2025-03-24 11:13 | NUR ---
APPOINTMENT SPOKE WITH CIPRIANO WITH DR. SORENSON. CIPRIANO STATES OFFICE WILL CALL PT WITH APPOINTMENT DATE AND TIME.
[2025-03-24 11:44] VITALS: BP 154/87; PULSE 54; RESP 18; TEMP 97.5
[2025-03-24 11:45] VITALS: BP 100/67; PULSE 107; RESP 18; TEMP 97.7
--- NOTE | 2025-03-24 14:08 | NUR ---
DISCHARGE DC'D IV. NO COMPLICATIONS. PT AWARE THAT DR. SORENSON OFFICE WILL CALL WITH APPOINTMENT DATE AND TIME. PT AWARE TO FOLLOW UP WITH PCP. PT DENIES PAIN AT THIS TIME. FAMILY AT BEDSIDE. PRESCRIPTIONS HANDED TO PT. TEACHINGS GIVEN. ANSWERED ALL QUESTIONS AT THIS TIME.
--- NOTE | 2025-03-24 17:25 | DS ---
Discharge Summary Hospital Course Summary: This is a 64-year-old male with past medical history of hypertension who presented to the hospital secondary to pain in the left flank area. Patient states he has been having ongoing pain for the past three days. He went to see his primary care provider who obtained a urine sample. Patient plate was placed on Levaquin due to concern for UTI. He was also given Flomax and [place] as outpatient. The patient states his pain remained persistent and he had also noted hematuria with urination. He denied any burning sensation with urination. He had associated nausea without any episodes of vomiting. He has had episodes of constipation. Denied any melena, hematochezia, hematemesis. Denied any fever, chills, shortness of breath, chest. Secondary to non improving symptoms patient thereafter came to the hospital evaluation. Labs were notable for white count of 12.3, hemoglobin was 14.8, platelet count was 234k, sodium was 139 potassium was 4.3 creatinine was elevated at 1.7, BUN was 37, glucose was [address] abdomen pelvis which showed left proximal ureteric calculus measuring 7 mm located 6 cm distal to the pelvic ureteric junction, right vesicoureteric junction 5 mm calculus. There was no hydronephrosis. There is bilateral nephrolithiasis. To right upper pole2 mm calculi in at least three l eft renal calculi measuring 4 mm. There was hepatomegaly with hepatic steatosis. There was bilateral fat containing hernia. There was bilateral perinephric stranding noted. Patient was seen by SUSHIL SORENSON MD who cleared patient for discharge with phill reynolds up in the clinic for elective stone treatment early next week. Patient is vitally stable, his creatinine has normalized, and he states that his pain is much better. We called [facility]rology [facility] and they stated that they will contact the patient on his phone for the appointment. Patient is being discharged with instructions to follow up with his urologist early next week. Assistant Track [employer] Coach(s): Urology consultation note ASSESSMENT: 64-year-old man presents to the emergency department with acute renal colic symptoms secondary to a 7 mm stone in the left mid ureter PLAN: 1. Patient has been admitted for supportive care. 2. He is doing much better. He does not really want to be in the hospital. Since patient has been stabilized, we completely agree with him being discharged so that we can schedule him for elective stone treatment some time early next week. 3. If patient is leaving to be treated next week, I urged the primary team to contact me so I can have a concrete plan for this patient. 60 minutes spent to complete a consult, more than half of the time spent in counseling and coordination of care and addressing questions posed by patient, some time was spent discussing with members of his care team, the rest of the time was spent reviewing medical records especially laboratory and imaging studies from this hospitalization. SUSHIL SORENSON MD Mar 23, 2025 21:50 Electronically Signed by: SUSHIL SORENSON MD03/23/25 2150 Electronically Co-Signed by: Procedure(s): PATIENT: DONNELL ADAME MR#: [id number] : 1960 SEX: M AGE: 64 LOCATION: [facility] ORDER 1014 STATUS: REG ER REPORT#: [id number] SERVICE 1013 REASON: l flank pain ORDERING PHYSICIAN: ANANT DELGADO CNP PROCEDURE: ABD PEL WO - CT ABDOMEN/PELVIS W/O CONTRAST EXAM: CT Abdomen and Pelvis Without IV Contrast CLINICAL HISTORY: Left flank pain TECHNIQUE: Axial computed tomography images of the abdomen and pelvis without intravenous contrast. CONTRAST: No IV contrast. COMPARISON: None provided. FINDINGS: LUNG BASES: Chronic dependent interstitial changes in the bilateral posterobasal segments. No pleural effusion. LIVER: Hepatomegaly measuring 17 cm with diffuse hepatic steatosis. GALLBLADDER AND BILE DUCTS: Gallbladder normal. No radiopaque gallstones. No biliary ductal dilatation. PANCREAS: Normal appearance. SPLEEN: Unremarkable. ADRENAL GLANDS: Unremarkable. KIDNEYS, URETERS, AND BLADDER: Right kidney: Two 2-mm calculi in the upper pole. Left kidney: At least three calculi measuring up to 4 mm. Left proximal ureter: 7-mm calculus (CT density 900 HU) located approximately 6 cm distal to the pelviureteric junction. Right vesicoureteric junction calculus: 5-mm calculus (density 500 HU). No hydronephrosis or hydroureter. Bladder unremarkable. Bilateral perinephric fat stranding noted. STOMACH AND BOWEL: No bowel obstruction, enteritis, or colitis. APPENDIX: Normal; 0.5 cm in diameter. PERITONEUM: No free fluid. No free air. LYMPH NODES: No lymphadenopathy. REPRODUCTIVE: Prostatomegaly measuring approximately 39 cc. VASCULATURE: Aorta and major branches demonstrate atherosclerotic calcification. No aneurysm. BONES: Moderate degenerative thoracolumbar spondylosis with multilevel disc space narrowing and facet arthrosis. Mild lumbar dextroscoliosis with Guerrero angle of 10???. No acute osseous lesion. OTHER: Fat-containing bilateral indirect inguinal hernias. Small umbilical hernia with 1-cm fascial defect containing fat. Dose length product: 996 mGy???cm. IMPRESSION: * Left proximal ureteric calculus measuring 7 mm (900 HU) located 6 cm distal to the pelviureteric junction; right vesicoureteric junction 5-mm calculus. No hydronephrosis. * Bilateral nephrolithiasis: Two right upper-pole 2-mm calculi and at least three left renal calculi up to 4 mm. * Hepatomegaly with diffuse hepatic steatosis. * Bilateral perinephric fat stranding, nonspecific, without obstructive uropathy. * Moderate degenerative thoracolumbar spondylosis with mild lumbar dextroscoliosis (Guerrero 10???). * Fat-containing bilateral indirect inguinal hernias and a small umbilical hernia. /[place] DICTATED BY: MAURICE REVELES MD DATE: 03/23/251331 ELECTRONICALLY SIGNED BY: MAURICE REVELES MD DATE: 03/23/251331 Assessment/Plan: ASSESSMENT: Symptomatic nephrolithiasis with a 7 mm stone 6 cm distal to the pelvic ureteric junction and multiple bilateral renal calculi POA Hematuria secondary to nephrolithiasis Suspected UTI POA Dehydration Acute kidney injury Hypertension Discharge Instructions: follow with pcp in 2-5days pt will have a scheduled appointment with Dr Dunne after discharge Home Medications: Active Scripts Hydrocodone/Acetaminophen ([place] 5-325 Tablet) 1 Each Tablet, 1-2 EACH PO Q6H PRN for pain, #90 TAB Prov:SHOSHANA CALVIN MD 11/10/17 Reported Medications Tadalafil (Cialis) 20 Mg Tablet, 1 TAB PO DAILY for erectile dysfunction for 10 Days, #10 TAB 0 Refills 03/23/25 Metoprolol Succinate (Metoprolol Succinate) 25 Mg Tab.er.24h, 1 TAB PO BID for 30 Days, #30 TAB 0 Refills 03/23/25 Atorvastatin Calcium (LIPITOR) 40 Mg Tablet, 1 TAB PO HS for 30 Days, #30 TAB 0 Refills 03/23/25 Amlodipine Besylate (Amlodipine Besylate) 5 Mg Tablet, 5 MG PO DAILY, TAB 11/06/17 Continued Medications: Amlodipine Besylate (Amlodipine Besylate) 5 Mg Tablet 5 MG PO DAILY, TAB Atorvastatin Calcium (Lipitor) 40 Mg Tablet 1 TAB PO HS for 30 Days, #30 TAB 0 Refills Hydrocodone/Acetaminophen ([place] 5-325 Tablet) 1 Each Tablet 1-2 EACH PO Q6H PRN for pain, #90 TAB Metoprolol Succinate (Metoprolol Succinate) 25 Mg Tab.er.24h 1 TAB PO BID for 30 Days, #30 TAB 0 Refills Tadalafil (Cialis) 20 Mg Tablet 1 TAB PO DAILY for erectile dysfunction for 10 Days, #10 TAB 0 Refills Time spent arranging discharge: 31-60 minutes ATTESTATION BY PHYSICIAN I have seen and examined the patient. I reviewed the documentation, medical dec ision making, and treatment plan as noted by the resident physician above. I agree with the findings and plan of care. NAKUL MORRIS MD, MUHAMMAD H MD Mar 24, 2025 17:25
== END 2025-03-24 14:15 | disposition home or self-care (01) ==
LOC: EDH 10:09 → EDHIP 13:20 → INTOOBSV 13:20 → 3BH 23:15
PROVIDERS: ADMIT Internal Medicine; ATTEND Internal Medicine
DX: N20.2 Calculus of kidney with calculus of ureter (principal); N17.9 Acute kidney failure, unspecified; I10 Essential (primary) hypertension; E86.0 Dehydration; K76.0 Fatty (change of) liver, not elsewhere classified; F17.210 Nicotine dependence, cigarettes, uncomplicated; Z79.899 Other long term (current) drug therapy; Z98.890 Other specified postprocedural states
CPT/HCPCS: 99285; 96361 ×2; 74176; 96365; 96375 ×2; 96376 ×2; 83036; 84443; 82570; 80076; 80048 ×2; 84300; 85025 ×2; 87086; 81001; 36415 ×2; 84145; 96366; J1885 ×3; J1308; J2270 ×3; J7030 ×2; J0696 ×2; J2405; G0378